=== PATIENT | male | born 1980 | race Caucasian/White ===

== ENCOUNTER 2020-06-26 08:44 | Outpatient (CLI) | payer BC, SELFPAY ==
--- NOTE | 2020-07-15 16:32 | WPDHOMESLEEP ---
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 He wakes up throughout the night, he and he has excessive daytime sleepiness. He has a difficult time waking in the morning. There is a (+) family history for sleep apnea with his father using CPAP. HE occasionally has trouble sleeping with a cold. He occasionally wakes up gasping for breath at night. He frequently has breathing problems at night observed by others. He constantly sweats excessively at night. He frequently notices his heart pounding or beating irregularly at night and he frequently falls asleep during the day, occasionally involuntarily occasionally while driving. He rarely falls asleep during physical effort. He does not have loss of muscle tone was strong emotion. He occasionally has daytime difficulties due to excessive sleepiness. Frequently feels paralyzed on waking or falling asleep and frequently has vivid dreamlike scenes upon awakening or falling asleep. He is not afraid to go to sleep. He frequently has nightmares, occasionally remembers his dreams, occasionally has racing thoughts. He rarely feels sad or depressed. He occasionally feels anxious. He occasionally has muscular tension. He occasionally notices parts of his body jerking, occasionally kicks at night and occasionally has crawling and aching feelings in his legs. He usually has leg pain at night. Does not have morning jaw pain and does not grind his teeth during sleep. He frequently is bothered by pain during the day. He rarely is awakened by pain at night. He constantly wakes up feeling stiff in the morning, frequently with sore, achy muscles and pain in the neck and spine. Has headaches, fatigue, concentration difficulties and nightmares. He somtimes has morning headaches. Normal bedtime is 8:00 p.m. taking 1-2 hours to fall asleep, typically waking 3 or 4 times at night. While awake he goes to the bathroom he still 15 minutes. In the. He wakes in the morning at 4:30 a.m.. On weekends he stays awake until 9:00 p.m. and wakes at 6:00 a.m. He sometimes feels drowsy in the morning for 2 hours or longer. Habits: Never smoker. He drinks caffeine 2 cans per day. He drinks alcohol. [facility] Past Medical History Medical History (Updated 07/15/20 @ 18:59 by Meggan Knowles MD) Hypertension Seasonal allergies Social History Social History Smoking status: Never smoker Alcohol intake: current Substance use: never Medications Home Medications Medication Instructions Recorded Confirmed Type No Home Medications 05/24/20 05/24/20 History Medications: melatonin ibuprofen Sleep Procedure The sleep study was completed using [employer] a technically adequate device with seven channels: peripheral arterial tone, actigraphy, body position, snore, respiratory movement, pulse oximetry, sleep staging, and heart rate. Prior to using the device, the patient received verbal and written instructions for its application and was provided with the help desk phone number for additional telephonic instruction with 24-hour availability of qualified personnel to answer questions. Sleep Architecture The recording time was 6 hours 54 minutes. The total sleep time is 6 hours 1 minute. Sleep efficiency was 87%. Sleep latency was 6 minutes. REM latency was short at 78 minutes. He had 8 awakenings and spent 12.9% of the study awake after sleep onset. He had 32% REM sleep, 42% light sleep and 25% deep sleep. The patient spent 31% of this study in the supine pos
[2020-07-15 19:01] VITALS: BMI 42.3
== END 2020-06-26 08:45 | disposition home or self-care (01) ==
LOC: ANHCSM 08:44
PROVIDERS: Visit Provider Internal Medicine Critical Care Medicine
DX: G47.30 Sleep apnea, unspecified (principal)
CPT/HCPCS: 95800